=== PATIENT | female | born 1955 | race Two or more races ===

== ENCOUNTER 2025-01-01 06:05 | Day surgery (SDC) | payer OTHER ==
[2024-12-30 11:54] LABS: HEMATOCRIT 42.6 % (36.0-45.00); HEMOGLOBIN 14.4 g/dL (12.0-15.00); MEAN CELL VOLUME 89.4 fL (80.00-100.00); MEAN CORPUSCULAR HEMOGLOBIN 30.3 pg (27.00-32.0); MEAN CORPUSCULAR HGB CONC 33.9 g/dl (32.0-36.0); PLATELET COUNT 202 K/uL (150-450); RED BLOOD COUNT 4.77 M/uL (4.00-6.00); RED CELL DISTRIBUTION WIDTH 13.8 % (11.5-14.5)
[2024-12-30 12:21] LABS: INR 0.99; PARTIAL THROMBOPLASTIN TIME 29.2 SECONDS (22.0-34.0); PROTHROMBIN TIME 10.8 SECONDS (9.0-11.5)
[2024-12-30 13:22] LABS: BILIRUBIN TOTAL 0.63 mg/dL (0.3-1.2); CALCIUM 9.4 mg/dL (8.5-10.1); CREATININE SERUM 0.57 mg/dL (0.55-1.02); GFR 105.79; GLOBULINA 3.3 G/DL (2.4-3.5); POTASSIUM 4.58 mEq/L (3.5-5.1); TOTAL PROTEIN 7.3 gm/dL (6.4-8.2)
[2024-12-30 14:00] VITALS: BP 135/77
[~2025-01-01 06:05] MED LIST: LEVOTHYROXINE25 MCG PO; LOSARTAN POTASS50 MG PO; METFORMIN HCL500 M3 PO; NORVASC5 MG PO
== END 2025-01-01 16:44 | disposition home or self-care (01) ==
LOC: CIR.AMB 06:05
PROVIDERS: ATTEND Internal Medicine
DX: K57.30 Diverticulosis of large intestine without perforation or abscess without bleeding (principal); D12.2 Benign neoplasm of ascending colon; R19.4 Change in bowel habit; K63.5 Polyp of colon; Z86.0101 Personal history of adenomatous and serrated colon polyps